=== PATIENT | female | born 1955 | race Caucasian/White ===

== ENCOUNTER 2017-10-05 16:48 | Outpatient (CLI) | payer OTHER ==
--- NOTE | 2017-10-05 19:51 | RAD ---
LUMBAR SPINE THREE VIEW 10/05/17 HISTORY: M[age] - acute bilateral lower back pain without sciatica. COMPARISON: MRI 2005. FINDINGS: T11 vertebral body height loss is similar. No acute displaced fracture or malalignment of the lumbar spine. Mild narrowing L5-S1 disc space. There are calcifications projecting over the right lower quadrant of the abdomen at the level of the right L4 transverse process in between the L4 and L5 transverse processes. IMPRESSION: 1. Chronic findings of the spine. 2. Calcification projecting over the right L4 transverse process in between the right L4 and L5 transverse processes. This may be sequela of stone versus phleboliths. POS: JORGE
== END 2017-10-05 16:49 | disposition home or self-care (01) ==
LOC: BURRAD 16:48
PROVIDERS: ATTEND Family Medicine
DX: M51.86 Other intervertebral disc disorders, lumbar region (principal)
CPT/HCPCS: 72100